=== PATIENT | male | born 1990 | race African-American/Black ===

== ENCOUNTER 2019-06-10 19:42 | Emergency (ER) | payer MEDICAID ==
[~2019-06-10] VITALS: Ht 172.7 cm; Wt 85.3 kg
[2019-06-10 20:36] VITALS: BP 119/59
== END 2019-06-10 20:36 | disposition home or self-care (01) ==
LOC: ED 19:42
DX: M79.10 Myalgia, unspecified site (principal); R09.81 Nasal congestion; Z88.0 Allergy status to penicillin